=== PATIENT | female | born 1970 | race Asian ===

== ENCOUNTER 2017-09-03 09:45 | Outpatient (CLI) | payer BC ==
--- NOTE | 2017-09-03 11:32 | MMO ---
BILATERAL DIGITAL SCREENING MAMMOGRAMS: Date: 09/03/17 This patient's mammogram was interpreted with the assistance of computer-aided detection. Comparison made with exams of 08/19/16, 07/30/15, and 03/29/14. FINDINGS: The breast tissue is heterogeneously dense, which may reduce the sensitivity of mammography. No susp icious masses, calcifications, or architectural distortion are seen. IMPRESSION: BIRADS 1: Negative Annual screening mammography is recommended. POS: LUIS FELIPE
== END 2017-09-03 09:46 | disposition home or self-care (01) ==
LOC: SCSMAMMO 09:45
PROVIDERS: ATTEND Family Medicine
DX: Z12.31 Encounter for screening mammogram for malignant neoplasm of breast (principal)
CPT/HCPCS: 77067; G0202

== ENCOUNTER 2018-08-24 08:13 | Outpatient (CLI) | payer BC | END 2018-08-24 08:14 | disposition home or self-care (01) | LOC: BICMAMMO 08:13 | PROVIDERS: ATTEND Family Medicine | DX: N64.4 Mastodynia (principal); R92.1 Mammographic calcification found on diagnostic imaging of breast | CPT/HCPCS: 77066; G0279 ==